=== PATIENT | male | born 1985 | race Caucasian/White ===

== ENCOUNTER 2017-12-30 20:47 | Emergency (ER) | payer OTHER ==
[~2017-12-30] VITALS: Ht 175.3 cm; Wt 103.4 kg
[~2017-12-30 20:47] MED LIST: ALBUTEROL2.5 MG/32 IH; FLOVENT HFA 2220 MCG IH
[2017-12-30 23:30] VITALS: BP 128/72
== END 2017-12-30 23:30 | disposition home or self-care (01) ==
LOC: M.ERS 20:47
DX: S61.012A Laceration without foreign body of left thumb without damage to nail, initial encounter (principal); Z23 Encounter for immunization; J45.909 Unspecified asthma, uncomplicated; W26.0XXA Contact with knife, initial encounter; Y93.89 Activity, other specified; Y92.89 Other specified places as the place of occurrence of the external cause; Y99.8 Other external cause status